=== PATIENT | female | born 1940 | race Caucasian/White ===

== ENCOUNTER 2018-12-30 09:25 | Emergency (ER) | payer MEDICARE, OTHER ==
--- NOTE | 2018-12-30 10:47 | RAD ---
3 VIEWS LUMBOSACRAL SPINE: Date: 12/30/18 COMPARISON: None. HISTORY: Fell out of bed 3 days ago with bilateral back pain since the accident. FINDINGS: 3 views of the lumbosacral spine show crush deformity of the T12 vertebral body with approximately 50 % height loss. There is questionable distraction of the posterior elements which could represent a ch ance fracture. The vertebral bodies demonstrate normal alignment without subluxation. IMPRESSION: T12 fracture as above. A CT of the spine is recommended for better evaluation. POS: [facility]
[2018-12-30] MEDS ORDERED: HYDROcodone/Acetaminophen 5/325 mg Tablet ONE (11:02)
--- NOTE | 2018-12-30 11:47 | CT ---
CT LUMBAR SPINE WITHOUT CONTRAST: Date: 12/30/18 COMPARISON: Lumbar radiograph dated 12/30/18. HISTORY: Compression fracture at T12. TECHNIQUE: Multiple contiguous axial images were obtained in a CTA of the lumbar spine without contrast. FINDINGS: There is a compression fracture of the T12 vertebral body involving the superior end plate. There is approximately 25% height loss. The fracture appears acute. This fracture does not appear to extend to the posterior elements and the abnormality on the plain film was likely artifactual. The vertebral b odies demonstrate normal alignment without subluxation. No other fractures are seen. IMPRESSION: T12 compression fracture as above. POS: [facility]
--- NOTE | 2018-12-30 11:51 | CT ---
CT THORACIC SPINE WITHOUT CONTRAST: Date: 12/30/18 COMPARISON: None. HISTORY: Back pain after fall with T12 compression fracture seen on x-ray. COMPARISON: Lumbar radiograph dated . TECHNIQUE: Multiple contiguous axial images were obtained in a CT of the thoracic spine without contrast. Sagitt al and coronal reformats were performed. FINDINGS: A compression fracture of the T12 vertebral body is seen involving the superior end plate. This fract ure appears acute and does not extend to the posterior elements. There is approximately 25% height lo ss of this vertebral body. No other fractures of the thoracic vertebral bodies are seen. No significa nt degenerative changes are seen. The prevertebral and paraspinal soft tissues are unremarkable. IMPRESSION: Compression fracture of T12 as above. POS: [facility]
== END 2018-12-30 12:35 | disposition home or self-care (01) ==
LOC: SCSER 09:25
DX: S22.089A Unspecified fracture of T11-T12 vertebra, initial encounter for closed fracture (principal); W06.XXXA Fall from bed, initial encounter
CPT/HCPCS: 72100; 72129; 72131

== ENCOUNTER 2019-02-28 14:43 | Outpatient (CLI) | payer MEDICARE, OTHER ==
--- NOTE | 2019-02-28 15:33 | RAD ---
LUMBAR SPINE TWO VIEWS: HISTORY: Thoracolumbar fracture. Followup. COMPARISON: 12/30/2018 FINDINGS: The compression deformity involving the T12 vertebra is again seen. There is anterior wedging with lo ss of anterior height of over 50%. The findings appear stable. The lumbar vertebrae maintain height and alignment and appear unchanged. IMPRESSION: Stable findings. POS: [facility]
== END 2019-02-28 14:44 | disposition home or self-care (01) ==
LOC: BICRAD 14:43
PROVIDERS: ATTEND Neurological Surgery
DX: S22.009A Unspecified fracture of unspecified thoracic vertebra, initial encounter for closed fracture (principal); S32.009A Unspecified fracture of unspecified lumbar vertebra, initial encounter for closed fracture
CPT/HCPCS: 72100

== ENCOUNTER 2021-07-31 10:28 | Outpatient (CLI) | payer MEDICARE | END 2021-07-31 10:29 | disposition home or self-care (01) | LOC: BICMAMMO 10:28 | PROVIDERS: ATTEND Internal Medicine | DX: Z12.31 Encounter for screening mammogram for malignant neoplasm of breast (principal) | CPT/HCPCS: 77063; 77067 ==

== ENCOUNTER 2023-08-25 13:04 | Outpatient (CLI) | payer MEDICARE | END 2023-08-25 13:05 | disposition home or self-care (01) | LOC: BICMAMMO 13:04 | PROVIDERS: ATTEND Internal Medicine | DX: Z12.31 Encounter for screening mammogram for malignant neoplasm of breast (principal) | CPT/HCPCS: 77063; 77067 ==